=== PATIENT | female | born 1990 | race Caucasian/White ===

== ENCOUNTER 2024-11-16 20:59 | Emergency (ER) | payer OTHER, SELFPAY ==
[2024-11-16 21:09] VITALS: BP 107/76
[2024-11-16 21:30] LABS: Hematocrit 38.3 % (37.0-47.0); Hemoglobin 12.9 g/dL (12.0-16.0); Mean Corp Hgb Conc. 33.7 g/dL (33.0-37.0); Mean Corpuscular Volume 87.0 fL (81.0-99.0); Nucleated Red Blood Cells % 0 %; Platelet Count 409 10^3/uL (130-400); Red Cell Dist. Width 12.3 % (11.5-14.5)
[2024-11-16 21:44] LABS: HCG, Serum Qualitative Screen Negative
[2024-11-16 21:49] LABS: ALT (SGPT) 169 U/L (0-35); AST (SGOT) 306 U/L (14-36); Albumin 4.7 g/dl (3.5-5.0); Alkaline Phosphatase 131 U/L (38-126); Blood Urea Nitrogen 21 mg/dl (7-17); Calcium 10.2 mg/dl (8.4-10.2); Carbon Dioxide 31 mmol/L (22-30); Chloride 102 mmol/L (98-107); Glucose 110 mg/dl (70-99); Potassium 5.1 mmol/L (3.5-5.1); Sodium 138 mmol/L (135-145); Total Protein 7.3 g/dl (6.3-8.2); eGFR > 60.00
[2024-11-16 21:53] LABS: Troponin I < 0.012 ng/ml
[2024-11-16 22:04] VITALS: BP 117/75
--- NOTE | 2024-11-16 22:15 | ED.GENMED ---
History of Present Illness
General
Chief Complaint: Chest Pain
Source: patient
Exam Limitations: none
Time Seen by Provider: 11/16/24 22:04
History of Present Illness
History of Present Illness:
See MDM
Past History
Past History
ED Past Medical History: None
ED Past Surgical History: None
Social History
Tobacco: Non-smoker
Alcohol: None
Phy Exam
Physical Exam
Physical Exam:
See MDM
Scores
Heart Score for Chest Pain Patients
STEMI patient?: No
History: Slightly or Non-Suspicious
ECG: Normal
Age: </= 45 years
Risk Factors: No Risk Factors
Troponin: </= Normal Limit
Heart Score for Chest Pain Patients: 0
Heart Score Risk: 2.5% MACE over next 6 weeks
Course
Orders/Labs/Results
Orders:
Orders
11/16/24 21:00
Electrocardiogram (*1) Urgent
Reason for Study: Chest Pain
EKG- Treatment ONCE
11/16/24 21:15
Test Result ONCE
11/16/24 21:20
Complete Blood Count/With Diff Urgent
Comprehensive Metabolic Panel Urgent
HCG, Serum Qualitative Screen Urgent
Lipase Urgent
Comment: ADD ON
Troponin I Urgent
11/16/24 22:11
0.9% Sodium Chloride 1000 ml [Nss] 1,000 ml IV BOLUS
Ketorolac [Toradol] 30 mg IV NOW STA
Ondansetron Injectable [Zofran] 4 mg IV NOW STA
US Abdomen Complete/Upper Urgent
Comment:
Reason For Exam: RUQ pain
11/16/24 22:12
Add On- LAB Urgent
Tests Added?: Lipase
11/17/24 00:00
CT Abd/pelvis W Iv Cont Urgent
Reason For Exam: Upper abd pain
Abnormal Lab Results
11/16/24
21:20
Plt Count 409 H 10^3/uL
(130-400)
Abs Immat Gran (auto) 0.1 H 10^3/uL
(0-0.05)
Absolute Monos (auto) 0.9 H 10^3/uL
(0.1-0.6)
Immature Gran % 0.6 H %
(0-0.5)
Monocytes % 10.7 H %
(1.7-9.3)
Carbon Dioxide 31 H mmol/L
(22-30)
BUN 21 H mg/dl
(7-17)
Glucose 110 H mg/dl
(70-99)
AST 306 H U/L
(14-36)
ALT 169 H U/L
(0-35)
Alkaline Phosphatase 131 H U/L
(38-126)
11/16/24 21:20
11/16/24 21:20
Vital Signs
Initial and Last Documented VS:
Initial Vital Signs
Temp Pulse Resp BP Pulse Ox
97.8 F 84 18 107/76 99
11/16/24 21:09 11/16/24 21:09 11/16/24 21:09 11/16/24 21:09 11/16/24 21:09
Last Documented Vital Signs
Temp Pulse Resp BP Pulse Ox
97.8 F 67 16 117/75 97
11/16/24 21:09 11/16/24 22:30 11/16/24 22:30 11/16/24 22:04 11/16/24 22:30
MDM/Problems Addressed
Differential Diagnosis Includes:
Note:
CHIEF COMPLAINT(S)
Severe chest pain radiating to the right side, episodic in nature, associated with nausea and transient peripheral symptoms.
HISTORY OF PRESENT ILLNESS
The patient is a 33-year-old female who presented with severe, episodic pain that began around 5 PM, described initially as horrible pain. The patient reported attempting to eat dinner, which exacerbated the pain and was accompanied by nausea. She
described experiencing a sensation of pins and needles in the ears, and transient facial paralysis lasting approximately five minutes. After the initial episode, the patient mentioned feeling strange and unwell throughout the night. She also
described a dull ache on her right side. The symptoms recurred upon arriving at the medical facility, with the patient noting increased intensity of chest tightness. The pain was described as similar to previous experiences with kidney stones,
causing severe distress followed by periods of feeling normal.
PAST MEDICAL AND SURIGICAL HISTORY
The patient has a known history of kidney stones.
EXTERNAL RECORDS REVIEWED
Recent blood work was reviewed, showing elevated liver function tests.
REVIEW OF SYSTEMS
- Gastrointestinal: Severe abdominal pain, nausea.
- Neurological: Transient facial paralysis, pins and needles sensation in the ears.
- Musculoskeletal: Dull ache on the right side, sensation of needing spinal adjustment.
PHYSICAL EXAM
General: Alert, no acute distress.
Skin: Warm, dry.
Head: Normocephalic, atraumatic
Neck: Appears supple, trachea midline.
Eyes, Ears, Nose, Mouth, and Throat: Oral mucosa moist.
Cardiovascular: No signs of cyanosis
Respiratory: Respirations are non-labored.
Abdomen: Non-distended. Point tenderness to right upper quadrant without rebound
Musculoskeletal: No deformities
Neurological: No focal neurological deficit observed.
Psychiatric: Cooperative, appropriate mood and affect.
PROBLEM LIST
Acute Problems:
1. Severe episodic chest and abdominal pain.
2. Elevated liver function.
PLAN
1. Initiate intravenous fluids and administer antiemetic and analgesic medications.
2. Arrange for an abdominal ultrasound to assess the gallbladder and surrounding structures.
3. If ultrasound results are inconclusive, proceed with a computed tomography scan for further evaluation.
4. Monitor liver function tests closely to evaluate for potential hepatitis or other hepatic involvement.
5. Provide reassurance regarding the hyperventilation-induced symptoms of peripheral tingling and discuss strategies to manage anxiety during episodes.
DIFFERENTIAL DIAGNOSIS
The Differential Diagnosis includes, in no particular order and is not limited to:
1. Cholelithiasis (Gallstones)
2. Cholecystitis
3. Biliary colic
4. Hepatitis
5. Peptic ulcer disease
6. Gastroesophageal reflux disease
7. Pancreatitis
8. Costochondritis
9. Musculoskeletal pain
10. Anxiety-induced hyperventilation
SUMMARY OF ENCOUNTER
The patient is a 33-year-old female who presented to the emergency department with severe episodic chest and abdominal pain, nausea, and transient neurological symptoms. On arrival, she experienced significant distress, but during her stay in the
emergency department, symptoms resolved. A computed tomography (CT) scan revealed a distended gallbladder and mild hepatomegaly, consistent with previously noted elevated liver function tests. An ultrasound was also performed but returned negative.
The likely diagnosis of biliary colic was discussed with the patient.
PLAN
1. The patient is advised to follow up with her primary care physician to recheck liver function tests.
2. Encourage the patient to seek medical attention if symptoms recur.
INDEPENDENT REVIEW OF LABS AND INTERPRETATION OF TESTS
- My independent review of LFTs indicates elevated levels, which correspond with mild hepatomegaly observed on the CT scan.
RADIOLOGY RESULTS
- My independent CT scan interpretation indicates a distended gallbladder and mild hepatomegaly.
- The ultrasound was negative, showing no acute abnormalities.
PATIENT EDUCATION AND COUNSELING
The patient was educated on the likely diagnosis of biliary colic and the benign nature of her current presentation as her symptoms have resolved. The importance of follow-up for liver function testing and potential further evaluation was stressed.
FOLLOW-UP INSTRUCTIONS
The patient is advised to follow up with her primary care physician to recheck liver function tests.
MEDICATION RECONCILIATION
- No medication was administered during the emergency department visit.
MEDICAL DECISION MAKING
- Number and Complexity of Problems Addressed: Chronic conditions affecting care include known history of kidney stones. Differential diagnoses considered: Cholelithiasis, cholecystitis, biliary colic, hepatitis, peptic ulcer disease,
gastroesophageal reflux disease, pancreatitis, costochondritis, musculoskeletal pain, anxiety-induced hyperventilation.
- Complexity of Data Reviewed:
- Data:
- Category 1: Tests and documents reviewed includes external records with recent elevated liver function tests. CT scan and ultrasound were independently interpreted.
- Risk: Discussions regarding diagnostic imaging leading to potential exposure to radiation were considered in the decision-making process, given the complexity and potential complications of the patients presentation.
DIAGNOSIS
- Biliary colic (K82.0)
- Elevated liver function tests (R94.5)
*Pulse Oximetry
SaO2: 99
Oxygen Mode of Delivery: Room air
Patient hypoxic: no
*Critical Care Note
Total Time (30-74mins, 75-104mins- exclusive of procedures): Not Applicable
ED Attending Note
-
Portions of this chart may have been created with voice recognition software.� Occasional wrong word or��sound alike� substitutions may have occurred due to the inherent limitations of voice recognition software.
Discharge Plan
Departure
Patient Disposition: Home (Routine Discharge)
Date of Disposition: 11/17/24
Time of Disposition: 02:30
Patient with high blood pressure during this ER visit?: No
Discharge Problem:
Biliary colic
Referrals:
Melody Bhatia PA [Family Provider, Family Practice]
Activity Restrictions/Additional Instructions:
Please return for any worsening symptoms.
You may return at any time if you have further concerns.
Please follow up with your doctor at the first available appointment, preferably this week. Please discuss your symptoms and have your liver function test rechecked.
Thank you for choosing [facility].
Interventions
Interventions:
*Risk Screen - Suicide Last Done: 11/16/24 21:09
*General Assessment Last Done: 11/16/24 21:09
*Neglect/Abuse Screening Last Done: 11/16/24 21:09
ED- Cardiac Assessment Last Done: 11/16/24 23:44
Discharge Date and Time
Print Language: NORWEGI[place]
[2024-11-16] MEDS: ZOFRAN 4 MG IV (22:22)
[2024-11-16] MEDS: NSS 1000 IV (22:24)
[2024-11-16 22:33] LABS: Lipase 274 U/L (23-300)
== END 2024-11-17 03:01 | disposition home or self-care (01) ==
LOC: EMR 20:59
PROVIDERS: EMERGENCY PHYSICIAN Student in an Organized Health Care Education/Training Program; FAMILY PHYSICIAN Physician Assistant
DX: R07.89 Other chest pain (principal); G51.0 Bell's palsy; K80.50 Calculus of bile duct without cholangitis or cholecystitis without obstruction; Z87.442 Personal history of urinary calculi
CPT/HCPCS: 99284; 96374; 96361; 74177; 76700; 80053; 83690; 84484; 84703; 85025; 93005; Q9967